=== PATIENT | female | born 1950 | race Caucasian/White ===

== ENCOUNTER 2018-04-26 18:32 | Emergency (ER) | payer BC, OTHER ==
[2018-04-26] MEDS ORDERED: TRANEXAMIC ACID 1,000 MG/10 ML VIAL TP ONE (18:59)
--- NOTE | 2018-04-26 19:08 | EDPHY ---
H & P Time Seen by Provider: 04/26/18 18:56 HPI/ROS: CHIEF COMPLAINT: Epistaxis left-sided HISTORY OF PRESENT ILLNESS: 67-year-old female with no anticoagulant use complaining of continued epistaxis since approximately 1700 hr today. No trauma. No headache. No nausea or vomiting. PHYSICAL EXAM (Prior to examination, patient consented to physical exam, hands were washed and my usual and customary physical exam procedures followed) 1) GENERAL: Well-developed, well-nourished, alert and oriented. Appears to be in no acute distress. 2) HEAD: Normocephalic 3) HEENT: sclera anicteric . Nasal clip in place taken down revealing active bleeding left Kiesselbach's plexus. This appears to be an anterior bleed no evidence of posterior bleed. Oropharynx is clear. 4) LUNGS: Breathing comfortably. Smoking Status: Never smoked Constitutional: Initial Vital Signs Temperature (C) 36.9 C 04/26/18 18:35 Heart Rate 104 H 04/26/18 18:35 Respiratory Rate 18 04/26/18 18:35 Blood Pressure 132/97 H 04/26/18 18:35 O2 Sat (%) 95 04/26/18 18:35 O2 Delivery Mode Room Air Allergies/Adverse Reactions: No Known Allergies Allergy (Verified 04/26/18 18:34) Home Medications: Medication Instructions Recorded NK [No Known Home Meds] 11/03/14 MDM/Departure - MDM Procedures: Procedure: Nasal packing with TXA Indication: Epistaxis Indications risks benefits discussed with patient and she consented. TXA soaked cotton pledget placed in left nostril and left in place for a period of time. Medications Given: Discontinued Medications Tranexamic Acid (Cyklokapron) 500 mg TP EDNOW ONE Stop: 04/26/18 19:00 Last Admin: 04/26/18 19:01 Dose: 500 mg ED Course/Re-evaluation: 8:06 p.m.: Patient had nasal packing with TXA. Re-evaluated at this time. She is hemostatic. Plan will be discharge home. Usual and customary epistaxis precautions and instructions provided. She feels comfortable being discharged. All questions and concerns addressed by my self. I saw this patient independently based on established practice protocols. Care of patient under supervision of secondary supervising physician Dr Tinajero . - Depart Disposition: Home, Routine, Self-Care Clinical Impression: Anterior epistaxis Condition: Good Instructions: Nosebleed (ED) Additional Instructions: If you develop further episodes of nosebleed, place direct pressure for 20 minutes. If the bleeding continues, seek medical attention. Do not blow your nose, do not pick your nose, avoid bearing down. Referrals: [facility] [Other] - 1-2 days without fail
[2018-04-26 20:20] VITALS: BP 149/111
== END 2018-04-26 20:18 | disposition home or self-care (01) ==
DX: R04.0 Epistaxis (principal)

== ENCOUNTER 2018-04-30 22:40 | Emergency (ER) | payer OTHER ==
[2018-04-30 22:55] VITALS: BP 168/92
[2018-04-30] MEDS ORDERED: OXYMETAZOLINE 30 ML NASAL SPRAY ONE (22:58)
[2018-04-30] MEDS ORDERED: SILVER NITRATE APPLICATOR 1 APPL TP ONE (22:58)
--- NOTE | 2018-04-30 23:05 | EDPHY ---
H & P Time Seen by Provider: 04/30/18 23:04 HPI/ROS: Chief complaint. Nose bleed HPI. 59-year-old female presents with nose bleed. She was seen 4 days ago in our emergency department for nose bleed. It was treated with nasal packing with TXA. Bleeding was controlled. Then this evening bleeding started again about 1 hr ago. She was getting blood down the back of her throat. She is not on blood thinners. There has been no trauma. She has had recent upper respiratory infection ROS Constitutional. no fever/chills, no weakness Eyes. no problems with vision ENT. Nose bleed Cardiovascular. no chest pain Respiratory. no shortness of breath, no cough Abdominal. no abdominal pain, no nausea/vomiting, no diarrhea . no problems urinating MS. no calf pain/swelling, no neck/back pain, no joint pain Skin. no rash Lymph. no swollen glands Neuro. no headache, no dizziness, no difficulty walking or with speech Past Medical/Surgical History: Previous nose bleeds otherwise healthy Social History: , nonsmoker, no alcohol Smoking Status: Never smoked Physical Exam: General Appearance: Alert pleasant well-developed female moderate distress vital signs are stable Eyes: Pupils equal and round no pallor or injection. ENT, currently the nose compressed with a nasal close pin. No bleeding currently Respiratory: There are no retractions, lungs are clear to auscultation. Cardiovascular: Regular rate and rhythm. Gastrointestinal: Abdomen is soft and nontender, no masses, bowel sounds normal. Neurological: Awake and alert, sensory and motor exams grossly normal. Skin: Warm and dry, no rashes. Musculoskeletal: Neck is supple nontender. Extremities symmetrical, full range of motion. Psychiatric: Patient is oriented X 3, there is no agitation. Constitutional: Initial Vital Signs Temperature (C) 36.6 C 04/30/18 22:42 Heart Rate 103 H 04/30/18 22:42 Respiratory Rate 16 04/30/18 22:42 Blood Pressure 168/92 H 04/30/18 22:42 O2 Sat (%) 95 04/30/18 22:42 O2 Delivery Mode Room Air Allergies/Adverse Reactions: No Known Allergies Allergy (Verified 04/30/18 22:45) Home Medications: Medication Instructions Recorded NK [No Known Home Meds] 11/03/14 Medical Decision Making Procedures: Clots clots are cleared from patient's nose by blowing. Afrin nose spray to both no nostrils. Inspection reveals old dried blood in the left nostril. Some active bleeding. Cotton ball soaked in T ex a are placed. After removal patient is observed. There is no further bleeding. ED Course/Re-evaluation: No further bleeding at and reinspection at 12:15 a.m.. Patient, her , and I discussed treatment plan including criteria for return importance of follow-up and further evaluation. She expresses understanding and agreement Differential Diagnosis: This appears to be recurrent nosebleed. Likely anterior but I do not see the source. Bleeding has been controlled. Patient has [facility] insurance is encouraged to follow up with [facility] this week. Departure - Departure Disposition: Home, Routine, Self-Care Clinical Impression: Acute anterior epistaxis Condition: Good Instructions: Nosebleed (ED) Additional Instructions: Antibiotic ointment applied to each nostril twice daily next 3 days. Caution with bending over so as not precipitate further bleeding Call [facility] tomorrow for further evaluation Referrals: NONE *PRIMARY CARE P,. [Primary Care Provider] - As per Instructions
[2018-04-30] MEDS ORDERED: TRANEXAMIC ACID 1,000 MG/10 ML VIAL TP ONE (23:18)
== END 2018-05-01 00:30 | disposition home or self-care (01) ==
DX: R04.0 Epistaxis (principal)